=== PATIENT | female | born 1970 | race Caucasian/White ===

== ENCOUNTER → 2017-06-21 | Outpatient (CLI) | payer OTHER ==
[~2017-06-21] MED LIST: LIDOCAINE 1%, 20ML ONE
== END | disposition home or self-care (01) ==
LOC: CFH 07:19
PROVIDERS: ATTEND Family Medicine
DX: R92.0 Mammographic microcalcification found on diagnostic imaging of breast (principal); Z80.3 Family history of malignant neoplasm of breast
CPT/HCPCS: 19081; 88305; G0206; J3490

== ENCOUNTER → 2017-07-20 | Outpatient (CLI) | payer OTHER ==
[~2017-07-20] MED LIST changes: +CITA20TA9 PO; -LIDOCAINE 1%, 20ML ONE; +LOVA40TA2 PO
== END ==
LOC: STAR 14:03
PROVIDERS: ATTEND Surgery
DX: Z02.9 Encounter for administrative examinations, unspecified (principal)

== ENCOUNTER 2017-08-03 09:32 | Day surgery (SDC) | payer OTHER ==
[~2017-08-03] VITALS: Ht 160 cm; Wt 59.7 kg
[~2017-08-03 09:32] MED LIST changes: +BUPIVACAINE/PF 0.5% ONE; +EPINEPHRINE 1 MG/ML, 1ML ONE; +HEPARIN 1,000 UNITS/ML, 10ML ONE
[2017-08-03] MEDS ORDERED: LACTATED RINGERS 1,000 ML IV SCH (11:11)
[2017-08-03 11:13] VITALS: BP 133/79
[2017-08-03 11:20] LABS: HCG UR SG 1.026 (1.003-1.030)
[2017-08-03] MEDS ORDERED: LIDOCAINE 1%, 2ML SQ PRN (11:30)
[2017-08-03] MEDS ORDERED: LABETALOL 5MG/ML, 20ML IV PRN (12:00)
[2017-08-03] MEDS ORDERED: PROMETHAZINE 25 MG/ML, 1ML IV PRN (12:00)
[2017-08-03] MEDS ORDERED: LORazepam 2 MG/ML, 1ML IVPush PRN (12:00)
[2017-08-03] MEDS ORDERED: hydrALAzine 20 MG/ML, 1ML IV PRN (12:00)
[2017-08-03] MEDS ORDERED: FENTANYL PF 100 MCG/2ML IV PRN (12:00)
[2017-08-03] MEDS ORDERED: DIAZEPAM 5 MG/ML, 2ML IVPush PRN (12:00)
[2017-08-03] MEDS ORDERED: ALBUTEROL/IPRATROPIUM 2.5MG/0.5MG, 3 ML NPPB PRN (12:00)
[2017-08-03] MEDS ORDERED: ONDANSETRON 2MG/ML, 2ML IVPush PRN (12:00)
[2017-08-03] MEDS ORDERED: MEPERIDINE/PF 25MG/0.5ML IVPush PRN (12:00)
[2017-08-03] MEDS ORDERED: MIDAZOLAM 1 MG/ML, 2ML IV PRN (12:00)
[2017-08-03] MEDS ORDERED: ACETAMINOPHEN 325 MG TABLET PO PRN (12:00)
[2017-08-03] MEDS ORDERED: HYDROmorphone 1 MG/ML, 1ML IV PRN (12:00)
[2017-08-03] MEDS ORDERED: OXYcodone 5 MG/5 ML ORAL.SOL UDC PO PRN (12:00)
[2017-08-03] MEDS ORDERED: PROPOFOL 10 MG/ML, 20ML ONE (12:20)
[2017-08-03] MEDS ORDERED: KETOROLAC 30 MG/1 ML ONE (12:20)
[2017-08-03] MEDS ORDERED: ONDANSETRON 2MG/ML, 2ML ONE (12:20)
[2017-08-03] MEDS ORDERED: CEFAZOLIN 1,000 MG ONE (12:20)
[2017-08-03] MEDS ORDERED: DEXAMETHASONE 4 MG/ML, 1ML ONE (12:20)
[2017-08-03] MEDS ORDERED: BUPIVACAINE/PF-EPI 0.5% 1:200K IM ONE (12:50)
[2017-08-03] MEDS ORDERED: ACETAMINOPHEN 650 MG/20.3 ML UDC ONE (13:48)
[2017-08-03 14:11] LABS: CULTURE INDICATED? YES; MICROSCOPIC INDICATED
== END 2017-08-03 16:00 ==
LOC: OR 09:32 → OUT 16:00
PROVIDERS: ATTEND Surgery
DX: D05.11 Intraductal carcinoma in situ of right breast (principal); E78.5 Hyperlipidemia, unspecified; Z98.890 Other specified postprocedural states
CPT/HCPCS: 19125; 19281; 76098; 81001; 81025; 87077; 87086; 87186; 88307; J0171; J0690; J1100; J1644; J1885; J2250; J2405; J2704; J3010; J3490; J7120

== ENCOUNTER 2017-08-31 09:26 | Day surgery (SDC) | payer OTHER ==
[~2017-08-31] VITALS: Ht 160 cm; Wt 61.1 kg
[~2017-08-31 09:26] MED LIST changes: -BUPIVACAINE/PF 0.5% ONE; -EPINEPHRINE 1 MG/ML, 1ML ONE; -HEPARIN 1,000 UNITS/ML, 10ML ONE
[2017-08-31] MEDS ORDERED: LACTATED RINGERS 1,000 ML IV SCH (09:45)
[2017-08-31 09:52] LABS: HCG UR SG 1.021 (1.003-1.030)
[2017-08-31] MEDS ORDERED: FENTANYL PF 250 MCG/5ML ONE ×2 (09:58→12:34)
[2017-08-31] MEDS ORDERED: MIDAZOLAM 1 MG/ML, 2ML ONE (09:58)
[2017-08-31] MEDS ORDERED: PROPOFOL 10 MG/ML, 20ML ONE (09:59)
[2017-08-31] MEDS ORDERED: ROCURONIUM 10 MG/ML,10ML ONE (09:59)
[2017-08-31] MEDS ORDERED: SODIUM CHLORIDE 0.9% PF 10ML ONE (10:00)
[2017-08-31] MEDS ORDERED: CEFAZOLIN 1,000 MG ONE ×3 (10:00→10:57)
[2017-08-31] MEDS ORDERED: DEXAMETHASONE 4 MG/ML, 1ML ONE ×2 (10:01)
[2017-08-31] MEDS ORDERED: ONDANSETRON 2MG/ML, 2ML ONE (10:01)
[2017-08-31] MEDS ORDERED: GLYCOPYRROLATE 0.4 MG/2 ML, 2ML ONE (10:02)
[2017-08-31] MEDS ORDERED: NEOSTIGMINE 1 MG/ML, 10ML ONE (10:02)
[2017-08-31 10:17] VITALS: BP 144/100
[2017-08-31] MEDS ORDERED: GENTAMICIN 80 MG/2 ML ONE (10:57)
[2017-08-31] MEDS ORDERED: BUPIVACAINE/PF 0.5% ONE (10:57)
[2017-08-31] MEDS ORDERED: ISOSULFAN BLUE 10 MG/ML, 5ML IV ONE (10:58)
[2017-08-31] MEDS ORDERED: EPINEPHRINE 1 MG/ML, 1ML ONE (10:58)
[2017-08-31] MEDS ORDERED: BACITRACIN 50,000 UNIT ONE (10:58)
[2017-08-31] MEDS ORDERED: LABETALOL 5MG/ML, 20ML IV PRN (11:00)
[2017-08-31] MEDS ORDERED: hydrALAzine 20 MG/ML, 1ML IV PRN (11:00)
[2017-08-31] MEDS ORDERED: ACETAMINOPHEN 325 MG TABLET PO PRN (11:00)
[2017-08-31] MEDS ORDERED: ONDANSETRON 2MG/ML, 2ML IVPush PRN (11:00)
[2017-08-31] MEDS ORDERED: PROMETHAZINE 25 MG/ML, 1ML IV PRN (11:00)
[2017-08-31] MEDS ORDERED: HYDROmorphone 1 MG/ML, 1ML IV PRN (11:00)
[2017-08-31] MEDS ORDERED: OXYcodone 5 MG/5 ML ORAL.SOL UDC PO PRN (11:00)
[2017-08-31] MEDS: MEPERIDINE/PF 25MG/0.5ML IVPush PRN ×2 (13:13→13:28)
[2017-08-31] MEDS ORDERED: MEPERIDINE/PF 50 MG/ML ONE (13:14)
[2017-08-31] MEDS ORDERED: OXYcodone 5 MG/5 ML ORAL.SOL UDC ONE (13:31)
[2017-08-31] MEDS ORDERED: FENTANYL PF 100 MCG/2ML ONE (13:31)
[2017-08-31] MEDS ORDERED: ACETAMINOPHEN 650 MG/20.3 ML UDC ONE (13:31)
[2017-08-31] MEDS: FENTANYL PF 100 MCG/2ML IV PRN ×2 (13:35→13:49)
[2017-08-31] MEDS ORDERED: morphine SULFATE 10 MG/ML, 1ML ONE (14:35)
[2017-08-31] MEDS ORDERED: MORPHINE SULFATE 4 MG/ML, 1ML IVPush PRN (15:00)
== END 2017-08-31 16:30 | disposition home or self-care (01) ==
LOC: OUT 09:26
PROVIDERS: ATTEND Plastic Surgery
DX: D05.11 Intraductal carcinoma in situ of right breast (principal); E78.00 Pure hypercholesterolemia, unspecified; Z87.891 Personal history of nicotine dependence; Z72.89 Other problems related to lifestyle; N62 Hypertrophy of breast
CPT/HCPCS: 19301; 19318; 19366; 81025; 88307; 88329; C1729; J0171; J0690; J1100; J1580; J2175; J2250; J2405; J2704; J2710; J3010; J3490; J7120

== ENCOUNTER 2017-10-31 14:15 | Day surgery (SDC) | payer OTHER ==
[2017-10-23 14:53] VITALS: BP 126/82
[~2017-10-31] VITALS: Ht 160 cm; Wt 61.5 kg
[~2017-10-31 14:15] MED LIST changes: +CEFAZOLIN 1,000 MG ONE; +DEXAMETHASONE 4 MG/ML, 1ML ONE; +ONDANSETRON 2MG/ML, 2ML ONE; +PROPOFOL 10 MG/ML, 20ML ONE
[2017-10-31] MEDS ORDERED: LACTATED RINGERS 1,000 ML IV SCH (14:35)
[2017-10-31] MEDS ORDERED: FAMOTIDINE 20 MG TABLET PO ONE (15:00)
[2017-10-31] MEDS ORDERED: GABAPENTIN 300 MG CAPSULE PO ONE (15:00)
[2017-10-31] MEDS ORDERED: ACETAMINOPHEN 500 MG TABLET PO ONE (15:00)
[2017-10-31] MEDS ORDERED: ONDANSETRON ODT 8 MG PO PRN (15:00)
[2017-10-31] MEDS ORDERED: OXYcodone IR 5MG TABLET PO PRN (15:00)
[2017-10-31 15:10] LABS: HCG UR SG 1.018 (1.003-1.030)
[2017-10-31] MEDS ORDERED: FENTANYL PF 100 MCG/2ML ONE (15:32)
[2017-10-31] MEDS ORDERED: MIDAZOLAM 1 MG/ML, 2ML ONE (15:32)
[2017-10-31] MEDS ORDERED: BUPIVACAINE/PF 0.5% ONE (15:52)
[2017-10-31] MEDS ORDERED: CEFAZOLIN 1,000 MG ONE (15:52)
[2017-10-31] MEDS ORDERED: GENTAMICIN 80 MG/2 ML ONE (15:53)
[2017-10-31] MEDS ORDERED: EPINEPHRINE 1 MG/ML, 1ML ONE (15:53)
[2017-10-31] MEDS ORDERED: BACITRACIN 50,000 UNIT ONE (15:53)
[2017-10-31] MEDS ORDERED: BUPIVACAINE/PF-EPI 0.5% 1:200K IM ONE (16:59)
[2017-10-31] MEDS ORDERED: MEPERIDINE/PF 25MG/0.5ML ONE (18:54)
[2017-10-31] MEDS ORDERED: OXYcodone 5 MG/5 ML ORAL.SOL UDC ONE (19:14)
[2017-10-31] MEDS: OXYcodone 5 MG/5 ML ORAL.SOL UDC PO PRN ×2 (19:19→21:29)
[2017-10-31] MEDS ORDERED: hydrALAzine 20 MG/ML, 1ML IV PRN (19:30)
[2017-10-31] MEDS ORDERED: ALBUTEROL SULFATE 2.5 MG/3 ML NPPB PRN (19:30)
[2017-10-31] MEDS ORDERED: EPHEDRINE 50 MG/ML, 1ML IVPush PRN (19:30)
[2017-10-31] MEDS ORDERED: MIDAZOLAM 1 MG/ML, 2ML IV PRN (19:30)
[2017-10-31] MEDS ORDERED: PROMETHAZINE 25 MG/ML, 1ML IV PRN (19:30)
[2017-10-31] MEDS ORDERED: MEPERIDINE/PF 25MG/0.5ML IVPush PRN (19:30)
[2017-10-31] MEDS ORDERED: HYDROcodone/APAP 7.5-325MG/15ML UDC PO PRN (19:30)
[2017-10-31] MEDS ORDERED: FENTANYL PF 100 MCG/2ML IV PRN (19:30)
[2017-10-31] MEDS ORDERED: ONDANSETRON 2MG/ML, 2ML IVPush PRN ×2 (19:30→21:00)
[2017-10-31] MEDS ORDERED: PROMETHAZINE 12.5 MG SUPP PR PRN (19:30)
[2017-10-31] MEDS ORDERED: LABETALOL 5MG/ML, 20ML IV PRN (19:30)
[2017-10-31] MEDS ORDERED: DIAZEPAM 5 MG/ML, 2ML IVPush PRN (19:30)
[2017-10-31] MEDS ORDERED: METOPROLOL 1 MG/ML, 5ML IV PRN (19:30)
[2017-10-31] MEDS ORDERED: morphine SULFATE 10 MG/ML, 1ML IV PRN (19:30)
[2017-10-31 19:57] VITALS: BP 150/96
[2017-10-31] MEDS ORDERED: MORPHINE SULFATE 4 MG/ML, 1ML IVPush PRN (20:30)
== END 2017-10-31 21:30 | disposition home or self-care (01) ==
LOC: OUT 14:15 → 4NOR 19:55 → OUT 21:30
PROVIDERS: ATTEND Surgery
DX: D05.11 Intraductal carcinoma in situ of right breast (principal); E03.9 Hypothyroidism, unspecified; E78.00 Pure hypercholesterolemia, unspecified; Z98.890 Other specified postprocedural states; Z87.891 Personal history of nicotine dependence; Z72.89 Other problems related to lifestyle
CPT/HCPCS: 19303; 81025; 88307; C1762; J0171; J0690; J1100; J1580; J2175; J2250; J2405; J2704; J3010; J3490; Q0162

== ENCOUNTER 2019-01-21 17:17 | Emergency (ER) | payer OTHER ==
[~2019-01-21] VITALS: Ht 160 cm; Wt 63.5 kg
[~2019-01-21 17:17] MED LIST changes: -CEFAZOLIN 1,000 MG ONE; -DEXAMETHASONE 4 MG/ML, 1ML ONE; -ONDANSETRON 2MG/ML, 2ML ONE; -PROPOFOL 10 MG/ML, 20ML ONE
--- NOTE | 2019-01-21 18:27 | NUR ---
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
[2019-01-21 18:31] LABS: CULTURE INDICATED? YES; MICROSCOPIC INDICATED
[2019-01-21 18:36] LABS: BASOPHILS # (AUTO) 0.06 x10^3/uL (0-0.1); BASOPHILS % (AUTO) 1 % (0-1); EOSINOPHILS # (AUTO) 0.01 x10^3/uL (0-0.4); EOSINOPHILS % (AUTO) 0 % (1-7); LYMPHOCYTES # (AUTO) 1.48 x10^3/uL (1-3.4); LYMPHOCYTES % (AUTO) 12 % (22-44); MD NO; MEAN CORPUSCULAR HEMOGLOBIN 32.9 pg (27.0-34.8); MEAN CORPUSCULAR VOLUME 99.9 fL (80-100); MEAN PLATELET VOLUME 10.3 fL (7.4-10.4); MONOCYTES # (AUTO) 0.74 x10^3/uL (0.2-0.8); MONOCYTES % (AUTO) 6 % (2-9); NEUTROPHILS # (AUTO) 10.18 x10^3/uL (1.8-6.8); NEUTROPHILS % (AUTO) 82 % (42-75); PLATELET COUNT 205 x10^3/uL (130-400); RED BLOOD COUNT 4.63 x10^6/uL (3.82-5.3); RED CELL DISTRIBUTION WIDTH 13.4 % (9.6-15.2)
[2019-01-21 18:45] LABS: ALBUMIN 4.4 g/dL (3.4-5.0); ANION GAP 10 mmol/L (5-15); CALCIUM 9.6 mg/dL (8.5-10.1); CHLORIDE 106 mmol/L (98-107)
[2019-01-21 18:47] LABS: CREATININE 1.15 mg/dL (0.55-1.02)
--- NOTE | 2019-01-21 18:53 | NUR ---
report given to Nieves
--- NOTE | 2019-01-21 18:55 | NUR ---
report received from mika bejarano.
--- NOTE | 2019-01-21 18:57 | NUR ---
pt to ct now.
[2019-01-21] MEDS ORDERED: KETOROLAC 30 MG/1 ML IM ONE (19:00)
[2019-01-21] MEDS ORDERED: KETOROLAC 30 MG/1 ML ONE (19:13)
--- NOTE | 2019-01-21 19:15 | NUR ---
pt back to room from ct now.
--- NOTE | 2019-01-21 19:19 | NUR ---
PT MEDICATED PER EMAR. PT TOLERATED WELL.
--- NOTE | 2019-01-21 19:58 | NUR ---
pt in ct now.
[2019-01-21] MEDS ORDERED: OMNIPAQUE 350 MG/ML, 150 ML BOTTLE ONE (20:29)
[2019-01-21 20:45] VITALS: BP 126/71
--- NOTE | 2019-01-21 21:10 | NUR ---
Patient given discharge instructions and they have confirmed that they understand the instructions. pt educated regarding dc medications. Patient ambulatory with steady gait. no acute distress at dc.
== END 2019-01-21 21:11 | disposition home or self-care (01) ==
LOC: ED 21:05
DX: N10 Acute pyelonephritis (principal); Z87.891 Personal history of nicotine dependence
CPT/HCPCS: 36415; 74176; 74177; 80048; 81001; 82040; 85025; 87077; 87086; 96372; 99284; J1885; Q9967; 87186